=== PATIENT | male | born 1985 | race Caucasian/White ===

== ENCOUNTER 2019-07-12 16:58 | Emergency (ER) | payer OTHER ==
[2019-07-12 17:25] VITALS: BP 136/65
[2019-07-12] MEDS ORDERED: LIDOCAINE 1% INJ-PF (10 MG/ML) 30 ML SDV INJ ONE (17:25)
--- NOTE | 2019-07-12 17:27 | ER Document Report ---
HPI - HPI Time Seen by Provider: 07/12/19 17:18 Pain Level: 3 Notes: Patient is a 34-year-old male with no significant past medical history who presents complaining of abscess to his left axilla area that is been present for the past 3 to 4 days. He is noticed redness and pain. He has not noticed any purulent discharge. Denies drug allergies. No history of MRSA or IV drug abuse. No other concerns or complaints. Denies any headache, fever, URI, sore throat, chest pain, palpitations, syncope, cough, shortness of breath, wheeze, dyspnea, abdominal pain, nausea/vomiting/diarrhea, urinary retention, dysuria, hematuria, or rash. - ROS Systems Reviewed and Negative: Yes All other systems reviewed and negative Past Medical History - Social History Smoking Status: Never Smoker Chew tobacco use (# tins/day): No Frequency of alcohol use: None Family History: Reviewed & Not Pertinent Patient has suicidal ideation: No Patient has homicidal ideation: No Vertical Provider Document - CONSTITUTIONAL Agree With Documented VS: Yes Notes: PHYSICAL EXAMINATION: GENERAL: Well-appearing, well-nourished and in no acute distress. LUNGS: Breath sounds clear to auscultation bilaterally and equal. No wheezes rales or rhonchi. HEART: Regular rate and rhythm without murmurs, rubs, gallops. Musculoskeletal: FROM to passive/active. Strength 5+/5. Extremities: No cyanosis, clubbing, or edema b/l. Peripheral pulses 2+. Capillary refill less than 3 seconds. NEUROLOGICAL: Cranial nerves grossly intact. Normal speech, normal gait. Normal sensory, motor exams PSYCH: Normal mood, normal affect. SKIN: There is a smaller approximate 2 cm abscess to the left lower medial axilla area with fluctuance and surrounding erythema. Tenderness is noted to this area. No streaks. - INFECTION CONTROL TRAVEL OUTSIDE OF THE [place] IN LAST 30 DAYS: No Course - Re-evaluation Re-evalutation: 07/12/19 18:09 Patient is an afebrile, well-hydrated, 34-year-old male who presents to the emergency department with an abscess to the left axilla needing incision and drainage. Vitals are acceptable without significant tachycardia, tachypnea, or hypoxia. PE is otherwise unremarkable. Patient is nontoxic-appearing and is tolerating p.o. without difficulty. Incision and drainage was performed successfully without any complications and packing was placed. Wound dressing was placed and wound instructions reviewed. Wound culture was obtained. No further labs or imaging warranted. Low suspicion for any sepsis, meningitis, SJS, or other systemic emergent condition at this time. Patient to monitor symptoms for any acute changes and seek medical attention if so. Recheck with your PCM in 2-3 days. Consider consult with the general surgeon. Return to the ED with any worsening/concerning symptoms as reviewed. Patient is in agreement. - Vital Signs Vital signs: Temp Pulse Resp BP Pulse Ox 97.9 F 69 16 136/65 H 99 07/12/19 17:02 07/12/19 17:02 07/12/19 17:02 07/12/19 17:24 07/12/19 17:02 Procedures - Incision and Drainage Left axilla Type: Simple Anesthetic type: 1% Lidocaine mL's of anesthetic: 4 Blade size: 11 I&D procedure: Betadine prep applied, Iodoform packing placed, Sterile dressing applied Incision Method: Incision made by scalpel Amount/type of drainage: moderate purulent Discharge - Discharge Clinical Impression: Abscess of left axilla Condition: Stable Disposition: HOME, SELF-CARE Instructions: Cephalexin ([facility]), Trimethoprim-Sulfa ([facility]), Abscess ([facility]), Post Incision and Drainage Additional Instructions: Do not shower or bathe for 24 hours. After 24 hours you may shower but no submersion of the wound under water. Keep the original dressing on the wound for 24 hours unless the drainage soaks through. Change the dressing daily thereafter and use a small amount of triple antibiotic ointment over the open wound. See your PCM in 2-3 days for recheck and continue direction for wound packing. Monitor for any signs of worsening pain or redness, streaks, and/or fever. Return to the ED if noticing any of the above symptoms or as needed. Take medications as directed. Prescriptions: Sulfamethoxazole/Trimethoprim [Bactrim Ds Tablet] 1 each PO BID #20 tablet Cephalexin Monohydrate [Keflex 500 mg Capsule] 500 mg PO TID #30 capsule Forms: Elevated Blood Pressure Referrals: YON PAK MD [ACTIVE STAFF] - Follow up as needed
== END 2019-07-12 18:22 | disposition home or self-care (01) ==
LOC: ER 16:58
DX: L02.412 Cutaneous abscess of left axilla (principal)
CPT/HCPCS: 99283; 87070; 87205; 10060; A6266